=== PATIENT | female | born 1965 | race Caucasian/White ===

== ENCOUNTER 2016-05-20 21:50 | Emergency (ER) | payer SELFPAY ==
[~2016-05-20] VITALS: Ht 162.6 cm; Wt 103.0 kg
[~2016-05-20 21:50] MED LIST: CLIN-44 PO; FAMO20TA5 PO; FLUT1DIS IH; HYDR-971 PO; INSU100I27 SQ; Ibuprofen PO; METF500T4 PO; Oxybutynin Chloride PO; PRED-220 PO; PRED50TA PO; TIOT18CA IH
[2016-05-20 22:54] LABS: BASO # 0.2 x10^3/uL (0.0-0.2); BASO % 2 % (0-3); EOS % 1 % (0-3); HEMATOCRIT 46.5 % (36.0-47.0); HEMOGLOBIN 15.4 g/dL (12.0-15.5); LYMPH # 2.1 x10^3/uL (1.0-4.8); LYMPH % 25 % (24-48); MEAN CORPUSCULAR HEMOGLOBIN 31 pg (25-35); MEAN CORPUSCULAR HGB CONC 33 g/dL (31-37); MEAN CORPUSCULAR VOLUME 94 fL (79-100); MONO % 11 % (0-9); NEUT % 61 % (31-73); PLATELET COUNT 215 x10^3/uL (140-400); RED BLOOD COUNT 4.95 x10^6/uL (3.50-5.40); RED CELL DISTRIBUTION WIDTH 14.1 % (11.5-14.5); WHITE BLOOD COUNT 8.5 x10^3/uL (4.0-11.0)
[2016-05-20 23:02] LABS: CREATININE 1.1 mg/dL (0.6-1.0); GFR 52.6; POTASSIUM 4.2 mmol/L (3.5-5.1)
[2016-05-20 23:08] LABS: ALBUMIN 3.6 g/dL (3.4-5.0); DIRECT BILIRUBIN 0.1 mg/dL (0.0-0.2); TOTAL BILIRUBIN 0.4 mg/dL (0.2-1.0)
[2016-05-20] MEDS ORDERED: AZITHROMYCIN 250 MG TABLET PO ONE (23:30)
[2016-05-20] MEDS ORDERED: methylPREDNISolone SOD SUCC PF 125 MG/2 ML VIAL. IV ONE (23:30)
[2016-05-20] MEDS ORDERED: IPRATRPIUM/ALBUTEROL 0.5/2.5MG 3 ML NEBU. NEB ONE (23:30)
[2016-05-20] MEDS ORDERED: PROMETH/CODEINE 6.25/10MG 5 ML SYRUP. PO ONE (23:30)
--- NOTE | 2016-05-20 23:38 | PHYS DOC ---
Past Medical History Past Medical History: COPD, Depression, Diabetes-Type II Past Surgical History: , Other Additional Past Surgical Histo: RIGHT BREAST LUMPECTOMY Alcohol Use: None Drug Use: None, Methamphetamine Adult General Chief Complaint Chief Complaint: SHORTNESS OF BREATH HPI HPI Patient is a 50 year old female who has a history significant for COPD and diabetes presents here today complaining of short of breath and cough that started roughly 4:30 in the morning. Patient reports she has tactile fevers at home. Denies nausea and vomiting. Positive for diarrhea. Positive for yellow white productive cough. Positive shortness of breath. Patient does smoke. Patient had C-sections 3 in the past. Patient is allergic to penicillin and aspirin. Patient denies any chest discomfort except occasionally when she is coughing. Patient reports she has inhalers at home that she uses for her COPD. Denies any oxygen use at home chronically. Patient's physical exam was significant for mild expiratory wheezing. No tachypnea. No respiratory distress. Patient was speaking in full sentences. Cardiac exam revealed regular rate and rhythm. Heart rate was between 85-95. No S3 or S4. No lower some edema. No rubs. No JVD. Patient clinically has no signs or symptoms consistent with congestive heart failure at this time. Patient was treated for COPD exacerbation with bronchitis and appears to be improved. No diuretics were given and the patient didn't improve which makes me feel that the elevated BNP, likely indicates acute pulmonary edema or CHF. I have discussed with the patient that she needs to follow up with her primary care doctor to get a referral to see a specialist for an outpatient echocardiogram. I do not feel that there is any further need for inpatient or ER evaluation at this time. I discussed with patient the importance of tobacco cessation. The patient has requested and actually insisted that I throw away her pack of cigarettes into the garbage. She reports that she has not had a cigarette in about 3 days. Patient's labs were otherwise unremarkable. Patient's blood sugar is elevated and to discuss with her the need to obtain better control of her diabetes with either diet or medications. Patient will follow up with her primary care physician for further evaluation of this. Patient's influenza titer was negative. Patient's EKG initially reveals normal sinus tachycardia. Patient has a normal QT with a QTC of 0.45 as interpreted by the EKG. Patient does appear to have U waves. Patient received albuterol treatment here in the ED and feels much improved. Patient's chest x-ray revealed a normal heart size with no infiltrates or effusions. Patient's EKG revealed sinus tach at 115 with no evidence of ST elevation NM. Interpreted by me. Patient's clinically and hemodynamically stable for discharge home for outpatient evaluation as discussed above. Review of Systems Review of Systems Constitutional: Tactile fevers. Eyes: Denies change in visual acuity, redness, or eye pain [] HENT: Denies nasal congestion or sore throat [] Respiratory: cough shortness of breath [] Cardiovascular: No additional information not addressed in HPI [] GI: Denies abdominal pain, nausea, vomiting, bloody stools : Denies dysuria or hematuria [] Musculoskeletal: Denies back pain or joint pain [] Integument: Denies rash or skin lesions [] Neurologic: Denies headache, focal weakness or sensory changes [] Endocrine: Denies polyuria or polydipsia [] Current Medications Current Medications Current Medications Medications (Trade) Dose Ordered Sig/Eliseo Start Time Stop Time Status Last Admin Dose Admin Albuterol/ Ipratropium (Duoneb) 3 ml 1X ONCE 05/20/16 23:30 05/20/16 23:31 DC 05/20/16 23:24 3 ML Azithromycin (Zithromax) 500 mg 1X ONCE 05/20/16 23:30 05/20/16 23:31 DC 05/20/16 23:19 500 MG Methylprednisolone Sodium Succinate (Solu-Medrol 125mg Vial) 125 mg 1X ONCE 05/20/16 23:30 05/20/16 23:31 DC 05/20/16 23:22 125 MG Promethazine HCl/ Codeine (Phenergan With Codeine) 10 ml 1X ONCE 05/20/16 23:30 05/20/16 23:31 DC 05/20/16 23:20 10 ML Allergies Allergies Allergies Coded Allergies Type Severity Reaction Last Updated Verified Penicillins Adverse Reaction Intermediate HIVES 02/26/14 Yes aspirin Adverse Reaction Intermediate Causes Stomach Upset. 10/10/13 Yes Physical Exam Physical Exam Constitutional: Well developed, well nourished, no acute distress, non-toxic appearance. [] HENT: Normocephalic, atraumatic, bilateral external ears normal, oropharynx moist, no oral exudates, nose normal. [] Eyes: PERRLA, EOMI, conjunctiva normal, no discharge. [] Neck: Normal range of motion, no tenderness, supple, no stridor. [] Cardiovascular:Heart rate regular rhythm, no murmur [] Lungs & Thorax: Bilateral breath sounds mild expiratory wheezing. Abdomen: Bowel sounds normal, soft, no tenderness, no masses, no pulsatile masses. [] Skin: Warm, dry, no erythema, no rash. [] Back: No tenderness, no CVA tenderness. [] Extremities: No tenderness, no cyanosis, no clubbing, ROM intact, no edema. [] Neurologic: Alert and oriented X 3, normal motor function, normal sensory function, no focal deficits noted. [] Psychologic: Affect normal, judgement normal, mood normal. [] Current Patient Data Vital Signs Vital Signs Date Time Temp Pulse Resp B/P Pulse Ox O2 Delivery O2 Flow Rate FiO2 05/20/16 23:29 110 20 108/68 92 Nasal Cannula 1 05/20/16 21:52 99.5 99.5 Lab Values Laboratory Tests Test 05/20/16 21:50 05/20/16 21:55 White Blood Count 8.5x10^3/uL (4.0-11.0) Red Blood Count 4.95x10^6/uL (3.50-5.40) Hemoglobin 15.4g/dL (12.0-15.5) Hematocrit 46.5% (36.0-47.0) Mean Corpuscular Volume 94fL (79-100) Mean Corpuscular Hemoglobin 31pg (25-35) Mean Corpuscular Hemoglobin Concent 33g/dL (31-37) Red Cell Distribution Width 14.1% (11.5-14.5) Platelet Count 215x10^3/uL (140-400) Neutrophils (%) (Auto) 61% (31-73) Lymphocytes (%) (Auto) 25% (24-48) Monocytes (%) (Auto) 11% (0-9) H Eosinophils (%) (Auto) 1% (0-3) Basophils (%) (Auto) 2% (0-3) Neutrophils # (Auto) 5.2x10^3uL (1.8-7.7) Lymphocytes # (Auto) 2.1x10^3/uL (1.0-4.8) Monocytes # (Auto) 1.0x10^3/uL (0.0-1.1) Eosinophils # (Auto) 0.1x10^3/uL (0.0-0.7) Basophils # (Auto) 0.2x10^3/uL (0.0-0.2) Sodium Level 137mmol/L (136-145) Potassium Level 4.2mmol/L (3.5-5.1) Chloride Level 97mmol/L (98-107) L Carbon Dioxide Level 28mmol/L (21-32) Anion Gap 12 (6-14) Blood Urea Nitrogen 9mg/dL (7-20) Creatinine 1.1mg/dL (0.6-1.0) H Estimated GFR (Cockcroft-Gault) 52.6 Glucose Level 299mg/dL (70-99) H Calcium Level 9.0mg/dL (8.5-10.1) Total Bilirubin 0.4mg/dL (0.2-1.0) Direct Bilirubin 0.1mg/dL (0.0-0.2) Aspartate Amino Transferase (AST) 58U/L (15-37) H Alanine Aminotransferase (ALT) 75U/L (14-59) H Alkaline Phosphatase 147U/L (46-116) H Troponin I Quantitative < 0.017ng/mL (0.000-0.055) RL-Iqy-W-Type Natriuretic Peptide 545pg/mL (0-124) H Total Protein 8.0g/dL (6.4-8.2) Albumin 3.6g/dL (3.4-5.0) Influenza Type A Antigen Negative (NEGATIVE) Influenza Type B Antigen Negative (NEGATIVE) Laboratory Tests 05/20/16 21:50 Laboratory Tests 05/20/16 21:50 EKG EKG [] Radiology/Procedures Radiology/Procedures [] Course & Med Decision Making Course & Med Decision Making Pertinent Labs and Imaging studies reviewed. (See chart for details) [] Dragon Disclaimer Dragon Disclaimer This electronic medical record was generated, in whole or in part, using a voice recognition dictation system. Departure Departure Impression: Primary Impression: COPD exacerbation Disposition: 01 HOME, SELF-CARE Condition: IMPROVED Referrals: NO PCP (PCP) Patient Instructions: Acute Bronchitis, Chronic Obstructive Pulmonary Disease Exacerbation, Smoking Cessation, Tips For Success Scripts Azithromycin (Zithromax)250 Mg Tablet1 Pkg PO UD #6 TAB Prov:DAVIS CAGLE MD 05/21/16 Promethazine HCl/Codeine (Prometh-Codein 6.25-10 mg/5 ml)5 Ml Syrup5 Ml PO Q6HRS PRN COUGH #60 Prov:DAVIS CAGLE MD 05/21/16 Prednisone 50 Mg Tablet1 Tab PO DAILY #5 TAB Prov:DAVIS CAGLE MD 05/21/16 DAVIS CAGLE MD May 20, 2016 23:38
[2016-05-20 23:51] LABS: OBC FLU VALID
[2016-05-21] MEDS ORDERED: PROM5SYR2 PO (00:06)
[2016-05-21] MEDS ORDERED: PRED50TA PO (00:06)
[2016-05-21] MEDS ORDERED: AZIT250T PO (00:06)
[2016-05-21 00:07] VITALS: BP 119/59
--- NOTE | 2016-05-21 06:25 | EKG ---
[facility] [address] [place] [address] Test Date: 2016-05-20 Test Time: 21:58:39 Pat Name: MOISES NESBITT Department: Room: Gender: F [employer] Shop: : [id number] Requested By: DAVIS CAGLE Order Number: [id number] Reading MD: Francois Ortega Measurements Intervals [place] Rate: 115 P: 4 MD: 138 QRS: -144 QRSD: 74 T: 52 QT: 324 QTc: 450 Interpretive Statements SINUS TACHYCARDIA ABNORMAL RIGHT SUPERIOR AXIS DEVIATION R-S TRANSITION ZONE IN V LEADS DISPLACED TO THE LEFT CONSIDER RIGHT VENTRICULAR HYPERTROPHY T ABNORMALITY IN ANTEROSEPTAL LEADS RI6.01 Unconfirmed report Electronically Signed On 05-25-2016 13:44:53 MOBILITY ENGINEER by Francois Ortega
--- NOTE | 2016-05-21 07:27 | RAD ---
Exam performed: One view chest. Indication: Shortness of breath today Date of Service: 05/21/2016 12:30 AM Comparison: 02/26/16. Single AP upright portable view chest findings: Patient is somewhat rotated. Cardiomediastinal silhouette is within limits of normal. No acute infiltrates, effusion or pneumothorax is detected. The bony structures are normal. Impression: No acute cardiopulmonary process is detected.
== END 2016-05-21 00:15 | disposition home or self-care (01) ==
LOC: ER 21:50
DX: J44.1 Chronic obstructive pulmonary disease with (acute) exacerbation (principal); E11.9 Type 2 diabetes mellitus without complications; F15.10 Other stimulant abuse, uncomplicated; Z88.0 Allergy status to penicillin; Z88.6 Allergy status to analgesic agent
CPT/HCPCS: 36415; 71010; 80048; 80076; 83880; 84484; 85027; 87804; 93005; 94640; 96374; 99285; J2930; J7620; Q0144